=== PATIENT | female | born 1955 | race Caucasian/White ===

== ENCOUNTER → 2016-12-25 | Outpatient (CLI) | payer BC ==
[~2016-12-25] MED LIST: ADVAIR 100-501 EAC1 INH; ALBUTEROL MININEB NEB; ALBUTEROL17 GM INH; AZMACORT20 GM INH; BACITRACIN15 GM TP; CALCIUM 600 +1 EA10 PO; CERTAGEN PO; COENZYME Q; COMBIVENT INH14.7 GM INH; FLAX SEED OIL1000 MG PO; FLONASE 0.05% N16 G1; FLONASE16 GM; GLUCOSAMINE CH1 EAC1 PO; GLUCOSAMINE CHO1 CA3 PO; MEDROL PO; MULTI VITAMIN1 EACH PO; PANTOPRAZOLE SO40 MG PO; PENNSAID112 GM TOP; PRILOSEC PO; PROAIR INHALER; SINGULAIR PO; SPIRIVA18 MCG INH; SYMBICORT INH; VITAMIN C PO; VITAMIN D3400 UNI1 PO; WELLBUTRIN XL PO; ZINC SULFATE PO; glucosamine/chondroi PO; magnesium
--- NOTE | ~2016-12-25 | NM4 ---
[facility] A Service of [facility] & [facility] RADIOLOGY TEXT RESULTS PATIENT: ROBBIE ORTEGA I LOCATION: [facility] : 57 UNIT #: [id number] AGE: [address]: Femi Barajas MD SEX: F ORDER DR: [id number] [facility] [address] [place], [place] [address] [id number] MR#: [id number] #: [id number] NAME: ROBBIE ORTEGA : 1955 SEX: F STUDY DATE/TIME: 12/25/2016 10:35 UNIT: [facility] ROOM: STUDY DESCRIPTION: [place] Bone or Joint 3 Phase Study Attending Physician: Femi Barajas M.D. Referring Physician: Femi Barajas M.D. Ordering Physician: Femi Barajas M.D. Primary Care Physician: Leonel Ramirez M.D. MEDICAL IMAGING REPORT This report is preliminary unless electronic signature is present EXAM 3-phase bone scan HISTORY 61-year-old female; right foot pain, chronic foot and ankle pain. Evaluate for possible insufficiency fracture, right foot and ankle. COMPARISON Right foot films 04/07/2016 and MRI of the right foot 10/08/2015. Comparison also made to a 3-phase bone scan 09/29/2015 FINDINGS 3-phase bone scan was performed over the feet and ankles following the intravenous administration of 26.2 mCi technetium-99m MDP. The flow portion of the examination demonstrates mild increased flow to the right foot and ankle diffusely. Immediate blood pool and delayed phase imaging also demonstrates increased activity within the right foot that localizes to the region of the calcaneus and medial malleolus and also in the region of the mid foot near the base of the third or fourth metatarsals. Findings are similar to the 3-phase bone scan performed in September 2015, and as previously evaluated, the imaging features are most compatible with a complex regional pain syndrome or reflex sympathetic dystrophy. Given the lack of discrete focal activity, underlying stress fracture is considered less likely, though potentially this could be superimposed on a background of complex regional pain syndrome. Uptake within the left foot and ankle appears normal. IMPRESSION Abnormal 3-phase bone scan demonstrating mild increased flow to the right foot and ankle, as well as localizing uptake within multiple foci within the right foot and ankle, most prominent in the region of the medial malleolus, medial talus, plantar calcaneus and also in the midfoot near the base of the third or fourth metatarsals. This is similar to the [facility]. [facility] A Service of [facility] RADIOLOGY TEXT RESULTS PATIENT: ROBBIE ORTEGA I LOCATION: [facility] : 57 UNIT #: [id number] AGE: [address]: Femi Barajas MD SEX: F ORDER DR: pattern noted in September 2015 and due to its diffuse findings is most suggestive of reflex sympathetic dystrophy or complex regional pain syndrome. Underlying stress fracture considered less likely. Given the absence of a true articular involvement, underlying inflammatory arthropathy considered unlikely, as well. Dictated by... Queta Sams M.D. THIS IS AN ELECTRONICALLY VERIFIED REPORT Queta Sams M.D. at 01/02/2017 1:33 PM Prabhakar TD: 12/26/2016 11:47 JOB #: [id number] MEDICAL IMAGING REPORT Page 1 of 1 COPY
== END | disposition home or self-care (01) ==
LOC: CNUC 09:43
DX: M79.671 Pain in right foot (principal); G89.29 Other chronic pain; R93.7 Abnormal findings on diagnostic imaging of other parts of musculoskeletal system
CPT/HCPCS: 78315; A9503